=== PATIENT | female | born 2000 | race Hispanic/Latino ===

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

== ENCOUNTER 2020-07-22 11:59 | Emergency (ER) | payer MEDICAID ==
[2020-07-22 12:16] LABS: APPEARANCE,URINE TURBID (CLEAR); BILIRUBIN,URINE NEGATIVE (NEGATIVE); GLUCOSE, URINE (UA) NEGATIVE (NEGATIVE); KETONES,URINE 40 mg/dL (NEGATIVE); LEUKOCYTE ESTERASE ,URINE SMALL (NEGATIVE); NITRATE,URINE POSITIVE (NEGATIVE); OCCULT BLOOD,URINE LARGE (NEGATIVE); PH,URINE 6.5 (5.0-8.0); PROTEIN,URINE 100 mg/dL (NEGATIVE)
[2020-07-22 12:17] LABS: COLOR,URINE RED (YELLOW)
[2020-07-22 12:21] LABS: HCG,QUAL RESULT NEGATIVE (NEGATIVE)
[2020-07-22 12:22] LABS: RBC,URINE TNTC /HPF (0-1)
[2020-07-22 12:26] LABS: BACTERIA,URINE Rare /HPF (None Seen); SQUAMOUS EPITHELIAL CELL,UR Few /HPF (0-2)
[2020-07-22 12:32] LABS: BASOPHILS % (AUTO) 0.6 % (0.0-5.0); EOSINOPHILS % (AUTO) 1.3 % (0.0-8.0); HEMATOCRIT 40.6 % (36-48); LYMPHOCYTES % (AUTO) 21.4 % (21.0-51.0); MEAN CORPUSCULAR VOLUME 84.2 fL (80-100); MONOCYTES % (AUTO) 5.4 % (3.0-13.0); PLATELET COUNT (AUTO) 257 K/uL (130-400); RED BLOOD CELL COUNT(AUTO) 4.82 MIL/uL (4.00-5.50); RED CELL DISTRIBUTION WIDTH 15.4 % (11.0-15.5); WHITE BLOOD COUNT (AUTO) 6.8 K/uL (4.8-10.8)
[2020-07-22 12:54] LABS: ALBUMIN 4.2 g/dL (3.5-5.0); BILIRUBIN,TOTAL 0.3 mg/dL (0.2-1.0); CREATININE 0.5 mg/dL (0.5-1.5); POTASSIUM 3.9 mmol/L (3.5-5.1)
[2020-07-22] MEDS ORDERED: IBUPROFEN 400 MG TABLET ONE (13:07)
[2020-07-22] MEDS ORDERED: CEPHALEXIN 500 MG CAPSULE ONE (13:07)
[2020-07-22] MEDS ORDERED: ACETAMINOPHEN EXTRA STRENGTH 500 MG TABLET ONE (13:08)
[2020-07-22] MEDS ORDERED: IBUPROFEN 200 MG TAB ONE (13:08)
== END 2020-07-22 13:15 | disposition home or self-care (01) ==
LOC: EDH 11:59
DX: N39.0 Urinary tract infection, site not specified (principal); N93.9 Abnormal uterine and vaginal bleeding, unspecified
CPT/HCPCS: 36415; 80053; 81001; 81025; 85025; 87088

== ENCOUNTER 2020-09-07 10:19 | Emergency (ER) | payer MEDICAID ==
[2020-09-07] MEDS ORDERED: ONDANSETRON 4MG INJ ONE (10:51)
[2020-09-07] MEDS ORDERED: HYOSCYAMINE SULFATE 0.125 MG TAB.SUBL SL ONE (10:52)
[2020-09-07] MEDS ORDERED: FAMOTIDINE 20MG VIAL IV ONE (10:52)
[2020-09-07 10:55] LABS: BASOPHILS % (AUTO) 0.2 % (0.0-5.0); EOSINOPHILS % (AUTO) 0.5 % (0.0-8.0); HEMATOCRIT 43.6 % (36-48); LYMPHOCYTES % (AUTO) 5.2 % (21.0-51.0); MEAN CORPUSCULAR HEMOGLOBIN 27.2 pg (27.0-33.0); MEAN CORPUSCULAR HGB CONC 31.4 g/dL (32.0-36.0); MEAN CORPUSCULAR VOLUME 86.5 fL (80-100); MONOCYTES % (AUTO) 4.1 % (3.0-13.0); NEUTROPHILS % (AUTO) 89.6 % (40.0-77.0); PLATELET COUNT (AUTO) 249 K/uL (130-400); RED BLOOD CELL COUNT(AUTO) 5.04 MIL/uL (4.00-5.50); RED CELL DISTRIBUTION WIDTH 14.7 % (11.0-15.5); WHITE BLOOD COUNT (AUTO) 12.5 K/uL (4.8-10.8)
[2020-09-07 10:57] LABS: APPEARANCE,URINE Clear (CLEAR); BILIRUBIN,URINE Negative (NEGATIVE); COLOR,URINE Yellow (YELLOW); GLUCOSE, URINE (UA) Negative (NEGATIVE); KETONES,URINE Negative (NEGATIVE); LEUKOCYTE ESTERASE ,URINE Negative (NEGATIVE); NITRATE,URINE Negative (NEGATIVE); OCCULT BLOOD,URINE Negative (NEGATIVE); PH,URINE 8.5 (5.0-8.0); PROTEIN,URINE Negative (NEGATIVE)
[2020-09-07 10:58] LABS: HCG,QUAL RESULT NEGATIVE (NEGATIVE)
[2020-09-07 11:09] LABS: CREATININE 0.6 mg/dL (0.5-1.5); POTASSIUM 3.9 mmol/L (3.5-5.1)
[2020-09-07 11:17] LABS: ALBUMIN 4.4 g/dL (3.5-5.0); BILIRUBIN,TOTAL 0.6 mg/dL (0.2-1.0); TOTAL PROTEIN, SERUM 8.6 g/dL (6.0-8.3)
[2020-09-07] MEDS ORDERED: IOHEXOL 350 MG/ML 100ML INFUS..BTL IV ONE (12:31)
[2020-09-07] MEDS ORDERED: KETOROLAC 30MG VIAL (30MG/ML) ONE (13:37)
== END 2020-09-07 14:02 | disposition home or self-care (01) ==
LOC: EDH 10:19
DX: K52.89 Other specified noninfective gastroenteritis and colitis (principal); R19.7 Diarrhea, unspecified; K82.9 Disease of gallbladder, unspecified
CPT/HCPCS: 36415; 74177; 76705; 80053; 81003; 81025; 83690; 85025; 96374; 96375; 99285; J1885; J2405; J3490; Q9967

== ENCOUNTER 2022-05-27 22:48 | Emergency (ER) | payer MEDICAID ==
[~2022-05-27] VITALS: Ht 157.5 cm; Wt 79.4 kg
[2022-05-27 22:50] VITALS: BP 116/67
[2022-05-27] MEDS ORDERED: IBUP-2071 PO (23:05)
[2022-05-27] MEDS ORDERED: CYCL10TA16 PO (23:05)
[2022-05-27] MEDS ORDERED: KETOROLAC 60 MG VIAL (30MG/ML) IM ONE (23:30)
[2022-05-27] MEDS ORDERED: ORPHENADRINE CITRATE 30 MG/ML ML IM ONE (23:30)
== END 2022-05-27 23:37 | disposition home or self-care (01) ==
LOC: EDH 22:48
DX: M62.838 Other muscle spasm (principal)
CPT/HCPCS: 99284; 96372; J1885; J2360

== ENCOUNTER 2022-05-28 23:01 | Emergency (ER) | payer MEDICAID ==
[~2022-05-28] VITALS: Ht 162.6 cm; Wt 99.8 kg
[~2022-05-28 23:01] MED LIST changes: +CYCL10TA16 PO; +IBUP-2071 PO
[2022-05-29] MEDS ORDERED: MORPHINE 4 MG SYG IM ONE (01:00)
[2022-05-29 01:19] LABS: BASOPHILS % (AUTO) 0.3 % (0.0-5.0); CREATININE 0.6 mg/dL (0.5-1.5); EOSINOPHILS % (AUTO) 0.6 % (0.0-8.0); HEMATOCRIT 40.2 % (36-48); LYMPHOCYTES % (AUTO) 14.4 % (21.0-51.0); MEAN CORPUSCULAR HGB CONC 32.3 g/dL (32.0-36.0); MEAN CORPUSCULAR VOLUME 86.5 fL (80-100); MONOCYTES % (AUTO) 4.3 % (3.0-13.0); NEUTROPHILS % (AUTO) 79.8 % (40.0-77.0); PLATELET COUNT (AUTO) 258 K/uL (130-400); POTASSIUM 3.8 mmol/L (3.5-5.1); RED BLOOD CELL COUNT(AUTO) 4.65 MIL/uL (4.00-5.50); RED CELL DISTRIBUTION WIDTH 13.4 % (11.0-15.5)
[2022-05-29 01:23] LABS: ALBUMIN 4.1 g/dL (3.5-5.0); CRP QUANTITATIVE 6.7 mg/L (0.00-9.0); TOTAL PROTEIN, SERUM 8.4 g/dL (6.0-8.3)
[2022-05-29 02:25] LABS: ERYTHROCYTE SEDIMENTATION RATE 19 MM/HR (0-20)
[2022-05-29] MEDS ORDERED: KETOROLAC 60 MG VIAL (30MG/ML) IM ONE (02:30)
[2022-05-29] MEDS ORDERED: DEXAMETHASONE SOD PHOSPHATE 4 MG/ML 1ML VIAL IVP ONE (04:30)
[2022-05-29 05:01] VITALS: BP 116/61
[2022-05-29] MEDS ORDERED: ACET-2079 PO (05:06)
== END 2022-05-29 05:23 | disposition home or self-care (01) ==
LOC: EDH 23:01
DX: M54.12 Radiculopathy, cervical region (principal); Z90.49 Acquired absence of other specified parts of digestive tract; Z79.899 Other long term (current) drug therapy
CPT/HCPCS: 99285; 80053; 84703; 85025; 85651; 86140; 36415; 96374; 72125; 96372 ×2; J1100; J2270; J1885

== ENCOUNTER 2022-11-14 18:39 | Emergency (ER) | payer MEDICAID ==
[~2022-11-14] VITALS: Ht 160 cm; Wt 86.2 kg
[~2022-11-14 18:39] MED LIST changes: +ACET-2079 PO; +[UNRECOGNIZED DRUG - CODE] PO
[2022-11-14] MEDS ORDERED: ONDANSETRON 4MG INJ IVP ONE (19:30)
[2022-11-14] MEDS ORDERED: 0.9%NACL 1000ML 1,000 ML IV SCH (19:30)
[2022-11-14 19:31] LABS: APPEARANCE,URINE CLEAR (CLEAR); BILIRUBIN,URINE NEGATIVE (NEGATIVE); COLOR,URINE YELLOW (YELLOW); GLUCOSE, URINE (UA) NEGATIVE (NEGATIVE); KETONES,URINE NEGATIVE (NEGATIVE); LEUKOCYTE ESTERASE ,URINE NEGATIVE Leu/uL (NEGATIVE); NITRATE,URINE NEGATIVE (NEGATIVE); OCCULT BLOOD,URINE NEGATIVE (NEGATIVE); PROTEIN,URINE 30 mg/dL (NEGATIVE)
[2022-11-14 19:35] LABS: HCG,QUALITATIVE URINE NEGATIVE (NEGATIVE)
[2022-11-14 19:38] LABS: BACTERIA,URINE RARE /HPF (None Seen); MUCUS,URINE FEW LPF (None Seen); SQUAMOUS EPITHELIAL CELL,UR MOD /HPF (0-2); WBC,URINE 0-1 /HPF (0-1)
[2022-11-14 19:48] LABS: BASOPHILS % (AUTO) 0.1 % (0.0-5.0); EOSINOPHILS % (AUTO) 0.3 % (0.0-8.0); HEMATOCRIT 40.1 % (36-48); LYMPHOCYTES % (AUTO) 10.7 % (21.0-51.0); MEAN CORPUSCULAR HEMOGLOBIN 26.9 pg (27.0-33.0); MEAN CORPUSCULAR HGB CONC 31.7 g/dL (32.0-36.0); MONOCYTES % (AUTO) 6.3 % (3.0-13.0); PLATELET COUNT (AUTO) 196 K/uL (130-400); RED BLOOD CELL COUNT(AUTO) 4.72 MIL/uL (4.00-5.50); RED CELL DISTRIBUTION WIDTH 13.6 % (11.0-15.5)
[2022-11-14 19:57] LABS: CREATININE 0.6 mg/dL (0.5-1.5); POTASSIUM 3.8 mmol/L (3.5-5.1)
[2022-11-14] MEDS ORDERED: 0.9%NACL 1000ML 1,000 ML IV ONE (20:00)
[2022-11-14 20:01] LABS: ALBUMIN 4.1 g/dL (3.5-5.0); TOTAL PROTEIN, SERUM 8.1 g/dL (6.0-8.3)
[2022-11-14] MEDS ORDERED: DIPH1TAB PO (20:47)
[2022-11-14] MEDS ORDERED: ONDA-104 PO (20:47)
[2022-11-14 20:56] VITALS: BP 118/77
== END 2022-11-14 21:53 | disposition home or self-care (01) ==
LOC: EDH 18:39
DX: K52.9 Noninfective gastroenteritis and colitis, unspecified (principal); Z79.899 Other long term (current) drug therapy; Z98.890 Other specified postprocedural states
CPT/HCPCS: 99283; 96374; 96361; 80053; 85025; 81001; 81025; 36415; J7030; J2405

== ENCOUNTER 2022-11-25 22:50 | Emergency (ER) | payer MEDICAID ==
[~2022-11-25] VITALS: Ht 160 cm; Wt 81.6 kg
[~2022-11-25 22:50] MED LIST changes: -ACET-2079 PO; -CYCL10TA16 PO; +DIPH1TAB PO; -IBUP-2071 PO; +ONDA-104 PO; -[UNRECOGNIZED DRUG - CODE] PO
[2022-11-25 23:22] LABS: BASOPHILS % (AUTO) 0.5 % (0.0-5.0); EOSINOPHILS % (AUTO) 0.8 % (0.0-8.0); HEMATOCRIT 37.4 % (36-48); LYMPHOCYTES % (AUTO) 28.4 % (21.0-51.0); MEAN CORPUSCULAR HEMOGLOBIN 26.7 pg (27.0-33.0); MEAN CORPUSCULAR HGB CONC 31.8 g/dL (32.0-36.0); MONOCYTES % (AUTO) 7.7 % (3.0-13.0); NEUTROPHILS % (AUTO) 62.4 % (40.0-77.0); PLATELET COUNT (AUTO) 280 K/uL (130-400); RED BLOOD CELL COUNT(AUTO) 4.45 MIL/uL (4.00-5.50); RED CELL DISTRIBUTION WIDTH 13.6 % (11.0-15.5); WHITE BLOOD COUNT (AUTO) 10.3 K/uL (4.8-10.8)
[2022-11-25 23:27] LABS: APPEARANCE,URINE CLEAR (CLEAR); BILIRUBIN,URINE NEGATIVE (NEGATIVE); COLOR,URINE LIGHT-YELLOW (YELLOW); GLUCOSE, URINE (UA) NEGATIVE (NEGATIVE); KETONES,URINE NEGATIVE (NEGATIVE); LEUKOCYTE ESTERASE ,URINE 25 Leu/uL (NEGATIVE); NITRATE,URINE NEGATIVE (NEGATIVE); OCCULT BLOOD,URINE NEGATIVE (NEGATIVE); PROTEIN,URINE NEGATIVE (NEGATIVE); UROBILINOGEN,URINE 0.2 mg/dL (0.2-1.0)
[2022-11-25] MEDS ORDERED: 0.9%NACL 1000ML 1,000 ML IV SCH (23:30)
[2022-11-25] MEDS ORDERED: ONDANSETRON 4MG INJ IVP ONE (23:30)
[2022-11-25 23:37] LABS: CREATININE 0.7 mg/dL (0.5-1.5); POTASSIUM 3.6 mmol/L (3.5-5.1)
[2022-11-25 23:39] LABS: MUCUS,URINE RARE LPF (None Seen); SQUAMOUS EPITHELIAL CELL,UR MOD /HPF (0-2)
[2022-11-25 23:41] LABS: ALBUMIN 4.2 g/dL (3.5-5.0)
[2022-11-26] MEDS ORDERED: KETOROLAC 15MG/ML VIAL (15MG/ML) IV ONE
[2022-11-26] MEDS ORDERED: NAPR-1023 PO (02:16)
[2022-11-26 02:17] VITALS: BP 129/85
== END 2022-11-26 02:23 | disposition home or self-care (01) ==
LOC: EDH 22:50
DX: R10.32 Left lower quadrant pain (principal); R10.31 Right lower quadrant pain; Z90.49 Acquired absence of other specified parts of digestive tract; Z79.899 Other long term (current) drug therapy; Z98.890 Other specified postprocedural states
CPT/HCPCS: 99285; 96374; 96361; 80053; 83690; 85025; 81001; 81025; 36415; 74176; 96375; J7030; J2405; J1885

== ENCOUNTER 2023-01-28 21:37 | Emergency (ER) | payer MEDICAID ==
[~2023-01-28] VITALS: Ht 160 cm; Wt 81.6 kg
[~2023-01-28 21:37] MED LIST changes: +NAPR-1023 PO
[2023-01-28 21:39] VITALS: BP 123/71
[2023-01-28 22:48] LABS: BASOPHILS % (AUTO) 0.5 % (0.0-5.0); HEMATOCRIT 39.5 % (36-48); LYMPHOCYTES % (AUTO) 29.6 % (21.0-51.0); MEAN CORPUSCULAR HEMOGLOBIN 26.9 pg (27.0-33.0); MEAN CORPUSCULAR HGB CONC 31.6 g/dL (32.0-36.0); MEAN CORPUSCULAR VOLUME 85.1 fL (79-99); MONOCYTES % (AUTO) 6.5 % (3.0-13.0); NEUTROPHILS % (AUTO) 62.1 % (40.0-77.0); PLATELET COUNT (AUTO) 268 K/uL (130-400); RED BLOOD CELL COUNT(AUTO) 4.64 MIL/uL (4.00-5.50); RED CELL DISTRIBUTION WIDTH 13.5 % (11.0-15.5); WHITE BLOOD COUNT (AUTO) 9.9 K/uL (4.8-10.8)
[2023-01-28 22:55] LABS: APPEARANCE,URINE CLEAR (CLEAR); BILIRUBIN,URINE NEGATIVE (NEGATIVE); COLOR,URINE LIGHT-YELLOW (YELLOW); GLUCOSE, URINE (UA) NEGATIVE (NEGATIVE); KETONES,URINE NEGATIVE (NEGATIVE); LEUKOCYTE ESTERASE ,URINE 25 Leu/uL (NEGATIVE); NITRATE,URINE NEGATIVE (NEGATIVE); OCCULT BLOOD,URINE NEGATIVE (NEGATIVE); PH,URINE 5.5 (5.0-8.0); PROTEIN,URINE NEGATIVE (NEGATIVE); UROBILINOGEN,URINE 0.2 mg/dL (0.2-1.0)
[2023-01-28 22:59] LABS: HCG,QUALITATIVE URINE NEGATIVE (NEGATIVE)
[2023-01-28 23:00] LABS: ALBUMIN 4.2 g/dL (3.5-5.0); CREATININE 0.6 mg/dL (0.5-1.5); POTASSIUM 3.9 mmol/L (3.5-5.1); TOTAL PROTEIN, SERUM 8.2 g/dL (6.0-8.3)
[2023-01-28 23:01] LABS: INR 0.95 (0.85-1.15); PROTHROMBIN TIME 11.1 SEC (9.6-11.6)
[2023-01-28 23:02] LABS: MUCUS,URINE RARE LPF (None Seen); RBC,URINE 0-1 /HPF (0-1); SQUAMOUS EPITHELIAL CELL,UR RARE /HPF (0-2)
[2023-01-28 23:03] LABS: PARTIAL THROMBOPLASTIN TIME 29.3 SEC (26.3-35.5)
[2023-01-28] MEDS ORDERED: CYCLOBENZAPRINE HCL 10 MG TABLET PO ONE (23:30)
[2023-01-28] MEDS ORDERED: ACETAMINOPHEN 500 MG TABLET PO ONE (23:30)
[2023-01-28] MEDS ORDERED: CEPH500B PO (23:43)
[2023-01-28] MEDS ORDERED: CYCL10TA16 PO (23:43)
== END 2023-01-28 23:54 | disposition home or self-care (01) ==
LOC: EDH 21:37
DX: N39.0 Urinary tract infection, site not specified (principal); R51.9 Headache, unspecified; Z20.822 Contact with and (suspected) exposure to COVID-19; Z90.49 Acquired absence of other specified parts of digestive tract
CPT/HCPCS: 99284; 70450; 87635; 80053; 85025; 85610; 85730; 87804 ×2; 81001; 81025; 36415; C9803

== ENCOUNTER 2023-06-13 20:05 | Emergency (ER) | payer MEDICAID, OTHER ==
[~2023-06-13] VITALS: Ht 162.6 cm; Wt 77.1 kg
[~2023-06-13 20:05] MED LIST changes: +CEPH500B PO; +CYCL10TA16 PO
[2023-06-13 20:12] VITALS: BP 134/76; PULSE 84; RESP 16; O2SAT 98
[2023-06-13 20:58] LABS: BASOPHILS # (AUTO) 0.05 K/uL (0.00-0.20); BASOPHILS % (AUTO) 0.5 % (0.0-5.0); EOSINOPHILS # (AUTO) 0.13 K/uL (0.00-0.70); EOSINOPHILS % (AUTO) 1.4 % (0.0-8.0); IMMATURE GRANULOCYTE ABSOLUTE 0.04 K/uL (0-1); LYMPHOCYTES # (AUTO) 2.8 K/uL (1.0-4.8); LYMPHOCYTES % (AUTO) 30.4 % (21.0-51.0); MEAN CORPUSCULAR HEMOGLOBIN 26.9 pg (27.0-33.0); MEAN CORPUSCULAR HGB CONC 31.5 g/dL (32.0-36.0); MEAN CORPUSCULAR VOLUME 85.3 fL (79-99); MONOCYTES # (AUTO) 0.4 K/uL (0.1-1.0); MONOCYTES % (AUTO) 4.7 % (3.0-13.0); NEUTROPHILS # (AUTO) 5.7 K/uL (1.8-7.7); NEUTROPHILS % (AUTO) 62.6 % (40.0-77.0); PLATELET COUNT (AUTO) 258 K/uL (130-400); RED BLOOD CELL COUNT(AUTO) 4.57 MIL/uL (4.00-5.50); RED CELL DISTRIBUTION WIDTH 13.5 % (11.0-15.5); WHITE BLOOD COUNT (AUTO) 9.2 K/uL (4.8-10.8)
[2023-06-13 21:10] LABS: CREATININE 0.6 mg/dL (0.5-1.5); POTASSIUM 3.7 mmol/L (3.5-5.1)
[2023-06-13 21:30] LABS: SARS-CoV-2, RNA, NAAT NEGATIVE SARS CoV-2 (NEGATIVE)
[2023-06-13 21:35] LABS: INFLUENZA TYPE A Negative For Type A (NEGATIVE); INFLUENZA TYPE B Negative For Type B (NEGATIVE)
[2023-06-13] MEDS ORDERED: IBUP-2077 PO (22:32)
== END 2023-06-13 22:36 | disposition home or self-care (01) ==
LOC: EDH 20:05
DX: B34.9 Viral infection, unspecified (principal); R51.9 Headache, unspecified; Z20.822 Contact with and (suspected) exposure to COVID-19; Z79.899 Other long term (current) drug therapy; Z98.890 Other specified postprocedural states
CPT/HCPCS: 99283; 87635; 80048; 85025; 87804 ×2; 36415; C9803

== ENCOUNTER 2023-08-20 23:46 | Emergency (ER) | payer OTHER ==
[~2023-08-20] VITALS: Ht 162.6 cm; Wt 81.6 kg
[~2023-08-20 23:46] MED LIST changes: +IBUP-2077 PO
[2023-08-21 00:12] LABS: BASOPHILS # (AUTO) 0.04 K/uL (0.00-0.20); BASOPHILS % (AUTO) 0.4 % (0.0-5.0); EOSINOPHILS # (AUTO) 0.15 K/uL (0.00-0.70); EOSINOPHILS % (AUTO) 1.4 % (0.0-8.0); HEMATOCRIT 37.6 % (36-48); IMMATURE GRANULOCYTE ABSOLUTE 0.03 K/uL (0-1); LYMPHOCYTES # (AUTO) 3.5 K/uL (1.0-4.8); LYMPHOCYTES % (AUTO) 32.8 % (21.0-51.0); MEAN CORPUSCULAR HEMOGLOBIN 26.9 pg (27.0-33.0); MEAN CORPUSCULAR HGB CONC 32.2 g/dL (32.0-36.0); MEAN CORPUSCULAR VOLUME 83.6 fL (79-99); MONOCYTES # (AUTO) 0.7 K/uL (0.1-1.0); MONOCYTES % (AUTO) 6.5 % (3.0-13.0); NEUTROPHILS # (AUTO) 6.2 K/uL (1.8-7.7); NEUTROPHILS % (AUTO) 58.6 % (40.0-77.0); PLATELET COUNT (AUTO) 266 K/uL (130-400); WHITE BLOOD COUNT (AUTO) 10.6 K/uL (4.8-10.8)
[2023-08-21 00:20] LABS: APPEARANCE,URINE CLOUDY (CLEAR); BILIRUBIN,URINE NEGATIVE (NEGATIVE); COLOR,URINE LIGHT-YELLOW (YELLOW); GLUCOSE, URINE (UA) NEGATIVE (NEGATIVE); KETONES,URINE NEGATIVE (NEGATIVE); LEUKOCYTE ESTERASE ,URINE 500 Leu/uL (NEGATIVE); NITRATE,URINE NEGATIVE (NEGATIVE); OCCULT BLOOD,URINE NEGATIVE (NEGATIVE); PH,URINE 6.5 (5.0-8.0); PROTEIN,URINE 10 mg/dL (NEGATIVE); UROBILINOGEN,URINE 0.2 mg/dL (0.2-1.0)
[2023-08-21 00:21] LABS: HCG,QUALITATIVE URINE NEGATIVE (NEGATIVE)
[2023-08-21 00:22] LABS: CREATININE 0.6 mg/dL (0.5-1.5); POTASSIUM 3.8 mmol/L (3.5-5.1)
[2023-08-21 00:25] LABS: ADD UA MICROSCOPIC YES
[2023-08-21 00:27] LABS: ALBUMIN 4.1 g/dL (3.5-5.0); BILIRUBIN,TOTAL 0.2 mg/dL (0.2-1.0); TOTAL PROTEIN, SERUM 7.9 g/dL (6.0-8.3)
[2023-08-21 00:39] LABS: MUCUS,URINE RARE LPF (None Seen); SQUAMOUS EPITHELIAL CELL,UR MOD /HPF (0-2)
[2023-08-21] MEDS ORDERED: MAGNESIUM HYDROXIDE 30 ML/UDCUP PO SCH (04:00)
[2023-08-21] MEDS ORDERED: CEFTRIAXONE 500MG VIAL IVPB STA (04:19)
[2023-08-21] MEDS ORDERED: CEPH500B PO (04:22)
[2023-08-21] MEDS ORDERED: AZITHROMYCIN 250 MG TABLET PO ONE (04:30)
[2023-08-21 05:05] VITALS: BP 115/81; PULSE 72; RESP 18; O2SAT 99
[2023-08-22] MEDS ORDERED: SULF1TAB42 PO (08:27)
== END 2023-08-21 05:06 | disposition home or self-care (01) ==
LOC: EDH 23:46
DX: N39.0 Urinary tract infection, site not specified (principal); N89.8 Other specified noninflammatory disorders of vagina; I10 Essential (primary) hypertension; Z90.49 Acquired absence of other specified parts of digestive tract; Z79.899 Other long term (current) drug therapy; Z98.890 Other specified postprocedural states
CPT/HCPCS: 99284; 96365; 80053; 83690; 85025; 87088; 87797; 87486; 81001; 81025; 36415; J0696

== ENCOUNTER 2023-10-03 02:01 | Emergency (ER) | payer OTHER ==
[~2023-10-03] VITALS: Ht 172.7 cm; Wt 77.1 kg
[~2023-10-03 02:01] MED LIST changes: -CEPH500B PO; -CYCL10TA16 PO; -DIPH1TAB PO; -IBUP-2077 PO; -NAPR-1023 PO; -ONDA-104 PO; +SULF1TAB42 PO
[2023-10-03 02:49] LABS: RAPID GROUP A STREP negative (NEGATIVE)
[2023-10-03 02:55] LABS: SARS-CoV-2, RNA, NAAT NEGATIVE SARS CoV-2 (NEGATIVE)
[2023-10-03 02:59] LABS: INFLUENZA TYPE A Negative For Type A (NEGATIVE); INFLUENZA TYPE B Negative For Type B (NEGATIVE)
[2023-10-03 04:50] VITALS: BP 122/79; PULSE 98; RESP 18; O2SAT 100
[2023-10-03] MEDS ORDERED: PENI500T2 PO (05:12)
[2023-10-03] MEDS: SOLU-MEDROL 125MG VIAL IM ONE (05:17)
[2023-10-03] MEDS: PENICILLIN V POTASSIUM 500 MG TABLET PO ONE (05:17)
== END 2023-10-03 05:29 | disposition home or self-care (01) ==
LOC: EDH 02:01
DX: J02.9 Acute pharyngitis, unspecified (principal); R13.10 Dysphagia, unspecified; Z20.822 Contact with and (suspected) exposure to COVID-19; Z79.899 Other long term (current) drug therapy; Z98.890 Other specified postprocedural states
CPT/HCPCS: 99283; 87635; 87880; 87804 ×2; 96372; J2930

== ENCOUNTER 2023-11-11 01:40 | Emergency (ER) | payer MEDICAID, OTHER ==
[~2023-11-11] VITALS: Ht 160 cm; Wt 81.6 kg
[~2023-11-11 01:40] MED LIST changes: +PENI500T2 PO
[2023-11-11] MEDS: 0.9%NACL 1000ML 1,000 ML IV ONE (03:48)
[2023-11-11] MEDS: ONDANSETRON 4MG INJ IVP ONE (03:48)
[2023-11-11] MEDS: ACETAMINOPHEN 325 MG TAB PO ONE (03:49)
[2023-11-11 03:54] LABS: RAPID GROUP A STREP negative (NEGATIVE)
[2023-11-11 03:58] LABS: APPEARANCE,URINE CLOUDY (CLEAR); BILIRUBIN,URINE NEGATIVE (NEGATIVE); COLOR,URINE YELLOW (YELLOW); GLUCOSE, URINE (UA) NEGATIVE (NEGATIVE); KETONES,URINE 40 mg/dL (NEGATIVE); LEUKOCYTE ESTERASE ,URINE NEGATIVE Leu/uL (NEGATIVE); NITRATE,URINE NEGATIVE (NEGATIVE); OCCULT BLOOD,URINE NEGATIVE (NEGATIVE); PROTEIN,URINE 50 mg/dL (NEGATIVE); UROBILINOGEN,URINE 3 mg/dL (0.2-1.0)
[2023-11-11 04:00] LABS: ADD UA MICROSCOPIC YES
[2023-11-11 04:01] LABS: HCG,QUALITATIVE URINE NEGATIVE (NEGATIVE)
[2023-11-11 04:01] LABS: SARS-CoV-2, RNA, NAAT NEGATIVE SARS CoV-2 (NEGATIVE)
[2023-11-11 04:04] LABS: INFLUENZA TYPE A Negative For Type A (NEGATIVE); INFLUENZA TYPE B Negative For Type B (NEGATIVE)
[2023-11-11 04:05] LABS: BASOPHILS # (AUTO) 0.02 K/uL (0.00-0.20); BASOPHILS % (AUTO) 0.2 % (0.0-5.0); EOSINOPHILS # (AUTO) 0.02 K/uL (0.00-0.70); EOSINOPHILS % (AUTO) 0.2 % (0.0-8.0); HEMATOCRIT 39.3 % (36-48); IMMATURE GRANULOCYTE ABSOLUTE 0.04 K/uL (0-1); LYMPHOCYTES # (AUTO) 0.7 K/uL (1.0-4.8); LYMPHOCYTES % (AUTO) 6.7 % (21.0-51.0); MEAN CORPUSCULAR HEMOGLOBIN 26.6 pg (27.0-33.0); MEAN CORPUSCULAR HGB CONC 31.6 g/dL (32.0-36.0); MEAN CORPUSCULAR VOLUME 84.3 fL (79-99); MONOCYTES # (AUTO) 0.4 K/uL (0.1-1.0); MONOCYTES % (AUTO) 3.7 % (3.0-13.0); NEUTROPHILS # (AUTO) 9.4 K/uL (1.8-7.7); NEUTROPHILS % (AUTO) 88.8 % (40.0-77.0); PLATELET COUNT (AUTO) 306 K/uL (130-400); RED BLOOD CELL COUNT(AUTO) 4.66 MIL/uL (4.00-5.50); RED CELL DISTRIBUTION WIDTH 13.4 % (11.0-15.5); WHITE BLOOD COUNT (AUTO) 10.6 K/uL (4.8-10.8)
[2023-11-11 04:06] LABS: MUCUS,URINE MANY LPF (None Seen); SQUAMOUS EPITHELIAL CELL,UR MANY /HPF (0-2)
[2023-11-11 04:17] LABS: CREATININE 0.7 mg/dL (0.5-1.0); POTASSIUM 3.8 mmol/L (3.5-5.1)
[2023-11-11 04:21] LABS: ALBUMIN 4.3 g/dL (3.5-5.0); BILIRUBIN,TOTAL 0.8 mg/dL (0.2-1.0); TOTAL PROTEIN, SERUM 8.5 g/dL (6.0-8.3)
[2023-11-11 04:31] VITALS: TEMP 99.6
[2023-11-11 05:12] VITALS: BP 120/83; PULSE 80; RESP 18; O2SAT 100
[2023-11-11] MEDS ORDERED: OMEP40CA21 PO (05:30)
[2023-11-11] MEDS ORDERED: ONDA-104 PO (05:30)
== END 2023-11-11 05:54 | disposition home or self-care (01) ==
LOC: EDH 01:40
DX: A08.4 Viral intestinal infection, unspecified (principal); E86.0 Dehydration; F41.9 Anxiety disorder, unspecified; Z20.822 Contact with and (suspected) exposure to COVID-19; Z79.899 Other long term (current) drug therapy; Z98.890 Other specified postprocedural states; Z90.49 Acquired absence of other specified parts of digestive tract
CPT/HCPCS: 99283; 96374; 96361; 87635; 80053; 83690; 85025; 87880; 87804 ×2; 81001; 81025; 36415; J7030; J2405